=== PATIENT | male | born 1965 | race Caucasian/White ===

== ENCOUNTER → 2019-07-22 07:39 | Outpatient (CLI) | payer OTHER, SELFPAY ==
[2019-07-22 08:19] LABS: Alanine Aminotransferase 55 IU/L (21-72); Albumin 4.7 g/dL (3.5-5.0); Albumin Globulin Ratio 1.4 (1.0-2.8); Alkaline Phosphatase 68 U/L (38-126); Aspartate Aminotransferase 42 IU/L (17-59); BUN Creatinine Ratio 18.9 (6-22); Bilirubin Total 0.8 mg/dL (0.2-1.3); Blood Urea Nitrogen 17 mg/dL (9-20); Calcium 9.5 mg/dL (8.4-10.2); Carbon Dioxide 28 mmol/L (22-32); Chloride 103 mmol/L (98-107); Cholesterol 260 mg/dL (140-199); Estimated Glomerular Filt Rate > 60.0 mL/min (>60); Globulin 3.4 g/dL (1.7-4.1); Glucose 113 mg/dL (70-100); HDL Cholesterol 44 mg/dL (40-60); HEMOLYSIS 20 (0-50); LDL Cholesterol Calculated 196 mg/dL (<100); Potassium 4.4 mmol/L (3.4-5.1); Sodium 140 mmol/L (137-145); Total Protein 8.1 g/dL (6.3-8.2); Triglycerides 102 mg/dL (35-150)
[2019-07-22 08:48] LABS: Prostate Specific Antigen Scrn 2.53 ng/mL (0.1-4.0); Vitamin D 25 Hydroxy (D3) 42.3 ng/mL (30.0-100.0)
== END ==
PROVIDERS: Visit Provider Student in an Organized Health Care Education/Training Program
DX: Z12.5 Encounter for screening for malignant neoplasm of prostate (principal); E55.9 Vitamin D deficiency, unspecified; Z79.899 Other long term (current) drug therapy; E78.5 Hyperlipidemia, unspecified; Z91.09 Other allergy status, other than to drugs and biological substances
CPT/HCPCS: 36415; 80053; 80061; 82306; G0103

== ENCOUNTER → 2023-05-06 07:17 | Outpatient (CLI) | payer OTHER, SELFPAY ==
--- NOTE | 2023-05-06 08:17 | DI.MRI.S_ITS ---
PROCEDURE: MR PELVIC PROSTATE PROTOCOL INDICATIONS: Elevated and rising PSA TECHNIQUE: Coronal HASTE, axial T1 FSE with fat saturation, 3-plane nonbreath-hold T2 FSE. After the administration of contrast, dynamic axial, delayed axial and coronal VIBE or 2-D FLASH with fat saturation through the pelvis. Optional diffusion weighted imaging and ADC may be performed. COMPARISON: None. FINDINGS: Image quality: Diffusion weighted and dynamic contrast enhanced images are diagnostic. Prostate: Gland size is 4.2 x 2.7 x 3.8 cm; ellipsoid gland volume is 22 mL. Lesion #1: Size: 0.8 x 0.7 centimeters Location: Left anterior peripheral zone, mid gland (for example axial diffusion series 23, image 66) T2 signal: Heterogeneous signal intensity DWI/ADC signal: Hyperintense on DWI without significant ADC hypointensity DCE: Positive DHARMESH: No large volume bulky extraprostatic extension. However there is long segment abutment of the lesion against the prostate pseudocapsule, difficult to exclude early extraprostatic extension. Seminal vesicle invasion: Absent PI-RADS: T2 signal - 3; ADC - 3; DCE - positive; Overall score: PI-RADS 4. Genitourinary system: Bladder wall thickness is normal. Distal ureters are non distended. Bowel and peritoneum: No pathologic free pelvic fluid. Inferior colon and small bowel loops are normal in caliber. Nodes and vessels: No pelvic or inguinal adenopathy by size criteria. Iliac vessels are normal in caliber. Bones: Marrow demonstrates unremarkable overall signal, without lesions to suggest metastases. IMPRESSION: 1. A 0.8 centimeter lesion at the left anterior peripheral zone is consistent with PI-RADS category 4. 2. No suspicious lymph nodes identified in the imaged pelvis. Dictated by: Roby Martinez M.D. on 05/06/2023 at 8:46 Approved by: Roby Martinez M.D. on 05/06/2023 at 9:27
== END ==
PROVIDERS: PCP Family Medicine; Referring Provider Urology; Visit Provider Urology
DX: N42.9 Disorder of prostate, unspecified (principal); R97.20 Elevated prostate specific antigen [PSA]
CPT/HCPCS: 72197; A9579

== ENCOUNTER → 2023-09-27 06:45 | Outpatient (CLI) | payer OTHER, SELFPAY ==
[2023-09-27 08:31] LABS: Prostate Specific Antigen 4.44 ng/mL (0.10-4.00)
== END ==
PROVIDERS: PCP Family Medicine; Referring Provider Urology; Visit Provider Urology
DX: R97.20 Elevated prostate specific antigen [PSA] (principal)
CPT/HCPCS: 84153

== ENCOUNTER → 2024-01-17 06:38 | Outpatient (CLI) | payer OTHER, SELFPAY ==
[2024-01-17 09:05] LABS: Add Manual Diff / Slide Review NO; Basophils Absolute Auto 0 /uL (0-100); Basophils Percent Auto 0.6 % (0-2); Eosinophils Absolute Auto 500 /uL (0-450); Hematocrit 43.3 % (41-53); Hemoglobin 15.1 g/dL (13.5-17.5); Lymphocytes Absolute Auto 1900 /uL (1100-4500); Mean Corpuscular HGB Conc 34.9 % (30-36); Mean Corpuscular Hemoglobin 31.2 PG (26-34); Mean Corpuscular Volume 89.5 fL (80-100); Monocytes Absolute Auto 600 /uL (0-900); Monocytes Percent Auto 8.1 % (3-14); Neutrophils Absolute Auto 3900 /uL (1500-7000); Neutrophils Percent Auto 56.3 % (50-75); Platelet Count 321 X10^3/uL (150-400); Red Blood Cell Count 4.84 X10^6/uL (4.5-5.9); White Blood Cell Count 6.9 X10^3/uL (4.5-11.0)
[2024-01-17 09:30] LABS: Alanine Aminotransferase 38 IU/L (<50); Albumin 4.4 g/dL (3.5-5.0); Albumin Globulin Ratio 1.7 (1.0-2.8); Alkaline Phosphatase 56 U/L (38-126); Aspartate Aminotransferase 26 IU/L (17-59); BUN Creatinine Ratio 26.3 (6-22); Bilirubin Total 0.6 mg/dL (0.2-1.3); Blood Urea Nitrogen 21 mg/dL (9-20); Calcium 9.3 mg/dL (8.4-10.2); Carbon Dioxide 25 mmol/L (22-32); Chloride 106 mmol/L (98-107); Cholesterol 212 mg/dL (140-199); Estimated Glomerular Filt Rate > 60 mL/min (>60); Globulin 2.6 g/dL (1.7-4.1); Glucose 108 mg/dL (70-100); HDL Cholesterol 64 mg/dL (40-60); HEMOLYSIS < 15 (0-50); LDL Cholesterol Calculated 132 mg/dL (<100); Potassium 4.4 mmol/L (3.4-5.1); Sodium 137 mmol/L (137-145); Triglycerides 79 mg/dL (35-150)
[2024-01-17 09:32] LABS: Hemoglobin A1C% w Est Avg Glu 5.7 % (4.0-6.0)
[2024-01-17 09:58] LABS: Prostate Specific Antigen 4.31 ng/mL (0.10-4.00)
[2024-01-17 09:58] LABS: Thyroid Stimulating Hormone 1.91 uIU/mL (0.47-4.68)
== END ==
PROVIDERS: Urology; PCP Family Medicine; Referring Provider Family Medicine; Visit Provider Family Medicine
DX: R53.83 Other fatigue (principal); Z13.220 Encounter for screening for lipoid disorders; R73.9 Hyperglycemia, unspecified; C61 Malignant neoplasm of prostate
CPT/HCPCS: 36415; 80053; 80061; 83036; 84153; 84443; 85025

== ENCOUNTER → 2024-03-04 16:13 | Outpatient (CLI) | payer OTHER, SELFPAY ==
--- NOTE | 2024-03-04 16:16 | DI.RAD.S_ITS ---
PROCEDURE: XR KNEE LT 3V INDICATIONS: LT KNEE PAIN TECHNIQUE: 3 views of the knee were acquired. COMPARISON: None. FINDINGS: Bones: Tricompartmental degenerative changes of the left knee. No acute fractures or dislocations. No reactive changes of subacute fracture healing. No suspicious bony lesions. Soft tissues: Small joint effusion. Moderate focal soft tissue swelling superficial to the patella. No suspicious soft tissue calcifications. IMPRESSION: No acute bony abnormality or significant effusion. Mild tricompartmental osteoarthrosis. Moderate focal anterior left knee soft tissue swelling at the level of the patella may represent prepatellar bursitis. Dictated by: Michael Luna M.D. on 03/05/2024 at 9:58 Approved by: Michael Luna M.D. on 03/05/2024 at 10:00
== END ==
LOC: RAD 16:14
PROVIDERS: PCP Family Medicine; Referring Provider Family Medicine; Visit Provider Family Medicine
DX: M17.12 Unilateral primary osteoarthritis, left knee (principal); M25.562 Pain in left knee; M79.89 Other specified soft tissue disorders
CPT/HCPCS: 73562

== ENCOUNTER → 2024-06-29 06:37 | Outpatient (CLI) | payer OTHER, SELFPAY ==
[2024-06-29 10:17] LABS: Prostate Specific Antigen 5.56 ng/mL (0.10-4.00)
== END ==
PROVIDERS: PCP Family Medicine; Referring Provider Urology; Visit Provider Urology
DX: C61 Malignant neoplasm of prostate (principal); R97.20 Elevated prostate specific antigen [PSA]
CPT/HCPCS: 36415; 84153

== ENCOUNTER → 2024-09-29 06:46 | Outpatient (CLI) | payer BC, SELFPAY ==
[2024-09-29 08:46] LABS: Prostate Specific Antigen 6.47 ng/mL (0.10-4.00)
== END ==
PROVIDERS: PCP Family Medicine; Referring Provider Urology; Visit Provider Urology
DX: R39.9 Unspecified symptoms and signs involving the genitourinary system (principal); R97.20 Elevated prostate specific antigen [PSA]
CPT/HCPCS: 36415; 84153

== ENCOUNTER → 2024-11-20 06:46 | Outpatient (CLI) | payer BC, SELFPAY ==
[2024-11-20 09:01] LABS: Prostate Specific Antigen 5.84 ng/mL (0.10-4.00)
== END ==
PROVIDERS: PCP Family Medicine; Referring Provider Urology; Visit Provider Urology
DX: C61 Malignant neoplasm of prostate (principal); R97.20 Elevated prostate specific antigen [PSA]
CPT/HCPCS: 36415; 84153

== ENCOUNTER → 2024-12-31 06:50 | Outpatient (CLI) | payer BC, SELFPAY ==
[2024-12-31 08:27] LABS: Prostate Specific Antigen 6.67 ng/mL (0.10-4.00)
== END ==
PROVIDERS: PCP Family Medicine; Referring Provider Urology; Visit Provider Urology
DX: C61 Malignant neoplasm of prostate (principal); R97.20 Elevated prostate specific antigen [PSA]
CPT/HCPCS: 36415; 84153

== ENCOUNTER → 2025-03-31 06:58 | Outpatient (CLI) | payer BC, SELFPAY ==
[2025-04-01 13:36] LABS: PSA, Total 5.9 ng/mL (0.0-4.0)
== END ==
PROVIDERS: PCP Family Medicine; Referring Provider Urology; Visit Provider Urology
DX: C61 Malignant neoplasm of prostate (principal)
CPT/HCPCS: 36415; 84153; 84154